=== PATIENT | female | born 1980 | race Two or more races ===

== ENCOUNTER 2017-11-01 11:04 | Emergency (ER) | payer MEDICAID ==
[~2017-11-01] VITALS: Ht 170.2 cm; Wt 68.0 kg
[~2017-11-01 11:04] MED LIST: AMOXICILLIN500 MG ORAL
--- NOTE | 2017-11-01 11:27 | Emergency Room Report ---
History of Present Illness General Chief Complaint: Allergic Reaction Source: Patient Present Illness HPI Patient presents with skin rash. She was out in the heat on Thursday and Thursday morning. Aside from that her no new soaps no new foods, clothes or prior allergy symptoms. She's complaining about itching of her skin at this time. There is no shortness of breath, nausea, vomiting or diarrhea. Her last period was October 25. No URI sy. No fevers, chills, joint pain, dysuria, headache, dizziness. Allergies: Coded Allergies: No Known Allergies (Unverified , 09/26/14) Patient History Past Medical History: see triage record Social History: Denies: smoking, alcohol use, drug use Social History Narrative cares for 11 yo at home Last Menstrual Period: 10/25/17 Now: No Reviewed Nursing Documentation: PMH: Agreed; PSxH: Agreed Nursing Documentation-PMH Past Medical History: No Stated History Review of Systems All Other Systems: negative except mentioned in HPI Physical Exam Vital Signs Date Time Temp Pulse Resp B/P (MAP) Pulse Ox O2 Delivery O2 Flow Rate FiO2 11/01/17 11:08 97.7 80 16 107/77 98 Room Air 97.7 Sp02 EP Interpretation: reviewed, normal General Appearance: well appearing, no apparent distress Head: normocephalic, atraumatic Eyes: bilateral eye normal inspection, bilateral eye PERRL ENT: hearing grossly normal, normal pharynx, no angioedema, normal voice, moist mucus membranes Neck: full range of motion, supple Respiratory: no respiratory distress, speaking full sentences Musculoskeletal: no calf tenderness Neurologic: alert, normal gait Psychiatric: mood/affect normal Skin: other - raised maculopapular rash with some excoriation chest, arms and neck Medical Decision Making Diagnostic Impression: Primary Impression: Dermatitis ER Course Patient presents with a rash. The only difference in her life is exposure to heat. Differential includes allergic reaction, folliculitis, other allergic process, heat rash amongst others. No evidence of anaphylaxis. Treatment will be with Benadryl and prednisone. Patient advised to follow-up. Also tetanus vaccination is updated. Patient stable for outpatient observation and treatment Last Vital Signs Date Time Temp Pulse Resp B/P (MAP) Pulse Ox O2 Delivery O2 Flow Rate FiO2 11/01/17 11:45 97.7 16 107/77 98 Room Air 97.7 11/01/17 11:08 80 Status: improved Disposition: HOME, SELF-CARE Condition: Improved Scripts Hydrocortisone (Hydrocortisone Cream 2.5%) Y Cream.appl 1 APPLIC TP BID, #30 GM Prov: Raghavendra Farrell M.D. 11/01/17 Prednisone* (PREDNISONE*) 20 Mg Tablet 20 MG ORAL DAILY, #5 TAB Prov: Raghavendra Farrell M.D. 11/01/17 Diphenhydramine Hcl* (BENADRYL*) 25 Mg Capsule 25 MG ORAL Q6H PRN for Itching, #16 CAP 1 Refill Prov: Raghavendra Farrell M.D. 11/01/17 Raghavendra Farrell M.D. Nov 01, 2017 11:27
[2017-11-01] MEDS ORDERED: PREDNISONE20 MG ORAL (11:30)
[2017-11-01] MEDS ORDERED: Tetanus/Diptheria/Pertussis Vaccine 0.5ml Syr IM ONE (11:30)
[2017-11-01] MEDS ORDERED: HYDROCORTISONE30 G2 TP (11:30)
[2017-11-01] MEDS ORDERED: BENADRYL25 MG ORAL (11:30)
[2017-11-01 11:45] VITALS: BP 107/77
== END 2017-11-01 11:44 | disposition home or self-care (01) ==
LOC: EMR 11:30
DX: L30.9 Dermatitis, unspecified (principal); Z23 Encounter for immunization
CPT/HCPCS: 90471; 90715; 99284; J7512